=== PATIENT | female | born 1960 | race Caucasian/White ===

== ENCOUNTER 2023-07-13 08:16 | Inpatient (IN) | payer BC ==
[2023-07-13] VITALS (7 sets, daily range): BP systolic 180–213; BP diastolic 95–124; PULSE 80–108; RESP 16–18; TEMP 97.6–98.5; O2SAT 95–97
[~2023-07-13] VITALS: Ht 152.4 cm; Wt 73.2 kg
[2023-07-13 09:15] LABS: BASOPHILS % (AUTO) 0.4 % (0.0-2.0); EOSINOPHILS % (AUTO) 0.4 % (0.0-4.0); HEMATOCRIT 44.7 % (36-48); HEMOGLOBIN 15.4 g/dL (12.0-16.0); LYMPHOCYTES # (AUTO) 1.4 K/uL (2.5-16.5); LYMPHOCYTES % (AUTO) 15.5 % (20.5-51.1); MEAN CORPUSCULAR HEMOGLOBIN 29 pg (27-31); MEAN CORPUSCULAR HGB CONC 35 g/dL (33-37); MEAN CORPUSCULAR VOLUME 83.3 fL (80-94); MONOCYTES # (AUTO) 0.2 K/uL (0.8-1.0); MONOCYTES % (AUTO) 2.7 % (1.7-9.3); NEUTROPHILS # (AUTO) 7.4 K/uL (1.8-7.7); PLATELET COUNT (AUTO) 211 K/uL (140-450); RED BLOOD CELL COUNT(AUTO) 5.37 MIL/uL (4.20-5.40); RED CELL DISTRIBUTION WIDTH 14.4 % (11.6-13.7); WHITE BLOOD COUNT (AUTO) 9.2 K/uL (4.8-10.8)
[2023-07-13] MEDS: NACL 0.9% 1,000 ML IV ONE (09:22)
[2023-07-13] MEDS: ENALAPRILAT 2.5 MG/2 ML VIAL IVP ONE ×2 (09:22→11:40)
[2023-07-13] MEDS: ONDANSETRON 4 MG/2 ML VIAL IVP ONE ×2 (09:22→11:40)
[2023-07-13 09:29] LABS: CALCIUM 9.1 mg/dL (8.5-10.1); CARBON DIOXIDE 26.7 mmol/L (21-32); POTASSIUM 3.7 mmol/L (3.5-5.1)
[2023-07-13 09:35] LABS: ALANINE AMINOTRANSFERASE 22 U/L (12-78); ALBUMIN 3.9 g/dL (3.4-5.0); ALKALINE PHOSPHATASE 129 U/L (50-136); ASPARTATE AMINOTRANSFERASE 20 U/L (15-37); BILIRUBIN,DIRECT 0.1 mg/dL (0.0-0.3); LIPASE 31 U/L (16-77); TOTAL BILIRUBIN 0.4 mg/dL (0.0-1.0); TOTAL PROTEIN, SERUM 8.1 g/dL (6.4-8.2)
[2023-07-13 09:38] LABS: INR 0.99 (0.8-1.2); PARTIAL THROMBOPLASTIN TIME 30.8 secs (22-35.6); PROTHROMBIN TIME 10.4 secs (10.8-13.4)
[2023-07-13 10:09] LABS: APPEARANCE,URINE CLEAR (CLEAR); BILIRUBIN,URINE NEGATIVE (NEGATIVE); BLOOD, URINE 2+ (NEGATIVE); COLOR,URINE YELLOW (YELLOW); LEUKOCYTE ESTERASE ,URINE NEGATIVE (NEGATIVE); NITRITE, URINE NEGATIVE (NEGATIVE); PH,URINE 7.5 (5.0-9.0); PROTEIN,URINE 3+ (NEGATIVE); UGLUCOSE NEGATIVE (NEGATIVE); UROBILINOGEN,URINE 0.2 EU/dL (0.2 - 1)
[2023-07-13 10:39] LABS: WBC,URINE 0-5 /HPF (0-5)
[2023-07-13 10:40] LABS: BACTERIA,URINE FEW /HPF (None Seen)
[2023-07-13 11:11] LABS: SQUAMOUS EPITHELIAL CELL,UR 0-3 (FEW) /LPF (0-3 (FEW))
[2023-07-13] MEDS ORDERED: KETOROLAC 15 MG/ML VIAL ONE (11:22)
[2023-07-13] MEDS: KETOROLAC 30 MG/ML VIAL IVP ONE (11:25)
[2023-07-13] MEDS: NACL 0.9% 500 ML IV ONE (11:40)
[2023-07-13] MEDS ORDERED: ASPI-1822 PO (12:26)
[2023-07-13] MEDS ORDERED: CARV3.12 PO (12:26)
[2023-07-13] MEDS ORDERED: ACETAMINOPHEN 325 MG TAB PO PRN ×3 (12:45→18:45)
[2023-07-13] MEDS ORDERED: ONDANSETRON 4 MG/2 ML VIAL IVP PRN (18:35)
[2023-07-13] MEDS: ONDANSETRON 4 MG/2 ML VIAL IVP PRN (21:33)
[2023-07-13] MEDS: hydrALAZINE 20 MG/ML VIAL IVP PRN (22:39)
[2023-07-14] VITALS (12 sets, daily range): BP systolic 133–189; BP diastolic 84–94; PULSE 84–116; RESP 17–19; TEMP 97.5–98.8; O2SAT 95–98
[2023-07-14] MEDS: POLYETHYLENE GLYCOL 17 GM/PKT PO PRN (08:56)
[2023-07-14] MEDS: MORPHINE SULFATE 2 MG/ML SYR IVP PRN (10:54)
[2023-07-14] MEDS ORDERED: PROMETHAZINE 6.25 MG/5 ML ORASYR PO PRN (13:35)
[2023-07-14] MEDS: KETOROLAC 60 MG/2 ML VIAL IM ONE (13:35)
[2023-07-14] MEDS: METOCLOPRAMIDE 10 MG/2 ML INJ VIAL IVP PRN (14:54)
[2023-07-14 17:06] LABS: BASOPHILS % (AUTO) 0.3 % (0.0-2.0); EOSINOPHILS # (AUTO) 0.1 K/uL (0-0.4); HEMATOCRIT 41.9 % (36-48); HEMOGLOBIN 14.5 g/dL (12.0-16.0); LYMPHOCYTES # (AUTO) 2.9 K/uL (2.5-16.5); LYMPHOCYTES % (AUTO) 23.1 % (20.5-51.1); MEAN CORPUSCULAR HEMOGLOBIN 29 pg (27-31); MEAN CORPUSCULAR HGB CONC 35 g/dL (33-37); MONOCYTES # (AUTO) 1.1 K/uL (0.8-1.0); MONOCYTES % (AUTO) 8.7 % (1.7-9.3); NEUTROPHILS # (AUTO) 8.4 K/uL (1.8-7.7); NEUTROPHILS % (AUTO) 66.9 % (42.2-75.2); PLATELET COUNT (AUTO) 213 K/uL (140-450); RED BLOOD CELL COUNT(AUTO) 5.05 MIL/uL (4.20-5.40); RED CELL DISTRIBUTION WIDTH 14.4 % (11.6-13.7); WHITE BLOOD COUNT (AUTO) 12.6 K/uL (4.8-10.8)
[2023-07-14 17:23] LABS: ALBUMIN 3.4 g/dL (3.4-5.0); ANION GAP 10.3 (8-16); CALCIUM 8.8 mg/dL (8.5-10.1); CARBON DIOXIDE 26.7 mmol/L (21-32); CREATININE 1.3 mg/dL (0.6-1.3); MAGNESIUM 2.1 mg/dL (1.8-2.4); TOTAL BILIRUBIN 0.5 mg/dL (0.0-1.0); TOTAL PROTEIN, SERUM 7.1 g/dL (6.4-8.2)
[2023-07-14] MEDS: POTASSIUM CHLORIDE 10 MEQ TABER PO ONE (18:59)
[2023-07-15] VITALS (12 sets, daily range): BP systolic 148–191; BP diastolic 81–102; PULSE 88–125; RESP 18–19; TEMP 97.4–98.6; O2SAT 96–97
[2023-07-15] MEDS: hydrALAZINE 25 MG TAB PO SCH (10:26)
[2023-07-15] MEDS: carvediloL 12.5 MG TAB PO SCH (10:27)
[2023-07-15] MEDS: lisinopriL 20 MG TAB PO SCH (14:01)
[2023-07-15] MEDS ORDERED: MECLIZINE 25 MG TAB PO PRN (14:10)
[2023-07-15] MEDS ORDERED: KETOROLAC 30 MG/ML VIAL IM PRN (14:10)
[2023-07-15] MEDS: MECLIZINE 25 MG TAB PO PRN (15:12)
[2023-07-16] VITALS (7 sets, daily range): BP systolic 116–160; BP diastolic 53–93; PULSE 85–95; RESP 18–19; TEMP 98.2–98.8; O2SAT 95–97
[2023-07-16 06:04] LABS: ANION GAP 12.1 (8-16); CALCIUM 9.2 mg/dL (8.5-10.1); CARBON DIOXIDE 26.6 mmol/L (21-32); CREATININE 1.3 mg/dL (0.6-1.3); POTASSIUM 3.7 mmol/L (3.5-5.1)
[2023-07-17] VITALS: BP 137/81; PULSE 80; PULSE 86; RESP 20; TEMP 98.8; O2SAT 96
[2023-07-17 04:00] VITALS: BP 153/89; PULSE 82; PULSE 86; RESP 20; TEMP 98.8; O2SAT 96
[2023-07-17 08:00] VITALS: BP 162/93; PULSE 79; RESP 18; RESP 20; TEMP 98.3; O2SAT 95
[2023-07-17 12:00] VITALS: BP 142/77; PULSE 79; RESP 20; TEMP 98.5; O2SAT 97
[2023-07-17] MEDS ORDERED: CARV12.52 PO (15:09)
[2023-07-17] MEDS ORDERED: LISI20TA29 PO (15:09)
[2023-07-17] MEDS ORDERED: HYDR-5856 PO (15:09)
[2023-07-17 16:00] VITALS: BP 147/76; PULSE 81; RESP 18; TEMP 98.6; O2SAT 95
[2023-07-17 20:00] VITALS: BP 138/80; PULSE 79; PULSE 96; RESP 18; TEMP 96; O2SAT 95; O2SAT 96
[2023-07-18] VITALS: BP_SYST 141; BP_SYST 157; BP_DIAS 87; BP_DIAS 99; PULSE 85; PULSE 89; RESP 18; TEMP 98.1; O2SAT 96
[2023-07-18 04:00] VITALS: BP 155/79; PULSE 80; PULSE 85; RESP 18; TEMP 97.5; O2SAT 96
[2023-07-18 08:00] VITALS: BP 143/76; PULSE 72; PULSE 75; PULSE 96; RESP 16; RESP 18; TEMP 97.1; O2SAT 95
[2023-07-18 12:00] VITALS: BP 156/84; PULSE 80; PULSE 95; RESP 19; TEMP 97.9; O2SAT 95
[2023-07-18 13:53] VITALS: BP 156/84; PULSE 80; RESP 19; TEMP 97.9
== END 2023-07-18 14:25 | disposition home or self-care (01) | DRG 103 ==
LOC: MED 08:16 → MTU 12:44
PROVIDERS: ADMIT Hospitalist; ATTEND Hospitalist
DX: G43.909 Migraine, unspecified, not intractable, without status migrainosus (principal); I16.9 Hypertensive crisis, unspecified; Z79.899 Other long term (current) drug therapy
CPT/HCPCS: 36415; 70450; 71045; 80048; 80053; 80076; 81001; 83690; 83735; 84484; 85025; 85610; 85730; 87081; 93005; 96361; 96374; 96375; 97163-GP; 97530; 99291; J0360; J1885; J2270; J2405; J2765; J3490; J8597